=== PATIENT | female | born 1955 | race Caucasian/White ===

== ENCOUNTER → 2018-07-08 | Outpatient (CLI) | payer BC ==
[~2018-07-08] MED LIST: AMOX-355 PO; DESI50TA PO; DOXY50CA2 PO; HYDR1TAB PO; ISOM1CAP11 PO; LANS30CA PO; LISI1TAB PO; LOVA20TA2 PO; OMEG-12 PO; OMEP-10 PO; PRD20T PO
== END ==
LOC: CARD 10:07
PROVIDERS: ATTEND Family Medicine
DX: R00.2 Palpitations (principal); R01.1 Cardiac murmur, unspecified; I07.1 Rheumatic tricuspid insufficiency
CPT/HCPCS: 93306

== ENCOUNTER → 2018-08-08 | Outpatient (CLI) | payer BC ==
[2018-08-09 13:12] VITALS: BP 109/76
--- NOTE | 2018-08-09 13:12 | Cardiology Stress Test Report ---
Stress Test Report Date of Procedure/Referring: Date of Procedure: Aug 08, 2018 PCP Genny Torres DO Admitting Physician Genny Torres DO Indications: chest pressure Baseline Heart Rate: 85 Baseline Blood Pressure: Blood Pressure Systolic: 109 Blood Pressure Diastolic: 76 Baseline EKG: Baseline EKG: sinus rhythm with occasional PVCs Summary/Conclusion: Summary: In summary, the patient started exercising with a baseline heart rate, blood pressure and EKG mentioned above Patient was able to exercise for a total of 4 minutes, 32 seconds on Damián protocol, 6.4 METs Maximum heart rate 149 Maximum blood pressure 171/89 mmhg Stress EKG No EKG changes consistent with ischemia. However, brief episodes of SVT were noted. Recovery EKG Return to baseline Conclusion: 1. average exercise tolerance 2. No stress induced EKG changes consistent with ischemia. 3. Brief episodes of SVT. Nixon CELESTIN MD Aug 09, 2018 13:12
== END ==
LOC: RAD 10:12
PROVIDERS: ATTEND Family Medicine
DX: Z12.31 Encounter for screening mammogram for malignant neoplasm of breast (principal); I47.1 Supraventricular tachycardia
CPT/HCPCS: 77067; 93017

== ENCOUNTER → 2018-08-21 | Outpatient (CLI) | payer BC ==
--- NOTE | 2018-08-21 11:06 | Diagnostic Imaging Report ---
EXAMINATION: Unilateral diagnostic right mammogram with CAD. INDICATION: Annual screening mammogram. COMPARISON: 08/08/2018. FINDINGS: The recent screening mammogram performed on 08/08/2018 noted a small circumscribed density in the retroareolar region of the right breast just lateral to the nipple line. This finding was only seen on the craniocaudad view, however. Compression views of this area in the ML and CC projections as well as a true lateral view were performed. The area in question could not be identified with certainty. It may be related to superimposition of the fibroglandular tissue. Even so, I would recommend that ultrasound be performed for further study. IMPRESSION: Ultrasound would be recommended for further evaluation of the right breast. ACR BI-RADS Category 0: Incomplete. (Needs additional imaging evaluation). Result letter will be mailed to the patient. Note: At least 10% of breast cancer is not imaged by mammography. Dictated by: Dictated on workstation # [id number]
--- NOTE | 2018-08-21 12:06 | Diagnostic Imaging Report ---
EXAMINATION: Ultrasound of the right breast. INDICATION: Abnormal mammogram. FINDINGS: The screening mammogram performed on 08/08/2018 suggested a small benign-appearing nodular density in the lateral retroareolar region of the right breast. That finding could not be identified with certainty on the diagnostic mammogram performed prior to this study. On this exam, however, there is a small well-circumscribed 6 x 4 x 8 mm avascular hypoechoic lesion in the 11 o'clock position 2 cm from the nipple. This may well correspond to the density seen on the screening mammogram. This finding is of uncertain etiology although has a generally benign appearance. Whether this is a small solid lesion or a small complicated cyst is unclear. I would recommend that a short-term (6 month) followup mammogram and ultrasound exam be performed for further study. IMPRESSION: There is a small benign-appearing hypoechoic lesion in the retroareolar region of the right breast. Considerations and recommendations as above. ACR BI-RADS Category 3: Probably benign findings. Result letter will be mailed to the patient. Note: At least 10% of breast cancer is not imaged by mammography. Dictated by: Dictated on workstation # [id number]
== END ==
LOC: RAD 08:57
PROVIDERS: ATTEND Family Medicine
DX: N64.89 Other specified disorders of breast (principal); R92.2 Inconclusive mammogram

== ENCOUNTER → 2019-01-23 | Outpatient (CLI) | payer BC ==
--- NOTE | 2019-01-23 19:30 | Diagnostic Imaging Report ---
INDICATION: Six-month follow-up right breast nodule. Patient also complains of a new palpable lump in the medial aspect of the right breast. Correlation is made with prior mammograms from 08/08/2018 and 07/31/2016. Unilateral right 2-D and 3-D diagnostic mammography was performed. The current study was also evaluated with a Computer Aided Detection (CAD) system. 3-D tomosynthesis was also performed and reviewed. FINDINGS: Scattered fibroglandular densities in the right breast are noted. Previously noted circumscribed nodule in the retroareolar slightly outer right breast appears stable. No new mass is seen. BB marker was placed at the area of palpable abnormality in the medial right breast. No underlying abnormality is detected. There are no suspicious microcalcifications. The right axilla is unremarkable. IMPRESSION: Stable circumscribed retroareolar nodule. Even so, follow-up right breast ultrasound of the nodule is recommended. In addition, sonographic interrogation of the area of palpable abnormality in the medial right breast is recommended and will be performed today. ACR BI-RADS Category 0: Incomplete. (Needs additional imaging evaluation). Result letter will be mailed to the patient. Note: At least 10% of breast cancer is not imaged by mammography. Dictated by: Dictated on workstation # [id number]
--- NOTE | 2019-01-23 19:39 | Diagnostic Imaging Report ---
INDICATION: Six-month followup right breast nodule. In addition, patient complains of a palpable lump in the medial right breast. Study is performed for further evaluation. COMPARISON: Correlation is made with prior right breast ultrasound from 08/21/2018. FINDINGS: Previously noted circumscribed hypoechoic nodule at the 11 o'clock location of the right breast, 2 cm from the nipple appears stable at 6 mm x 3 mm x 8 mm. This has benign features. No internal vascularity is seen. In addition, the area of palpable abnormality at the 3 o'clock location of the right breast, 1 cm from the nipple was evaluated. No sonographic abnormality is seen. No solid or cystic mass is detected. IMPRESSION: 1. Stable circumscribed benign-appearing nodule at the 11 o'clock location of the right breast, 2 cm from the nipple. Additional six-month followup with mammogram and ultrasound is recommended to show continued stability. 2. No sonographic abnormality is identified at the area of new palpable abnormality in the medial right breast. Continued close clinical and self-breast exam is recommended to confirm stability. ACR BI-RADS Category 3: Probably benign findings. Dictated by: Dictated on workstation # [id number]
== END ==
LOC: RAD 09:27
PROVIDERS: ATTEND Family Medicine
DX: N63.11 Unspecified lump in the right breast, upper outer quadrant (principal)

== ENCOUNTER → 2019-02-05 | Outpatient (CLI) | payer BC ==
--- NOTE | 2019-02-05 13:08 | Diagnostic Imaging Report ---
INDICATION: Chronic low back pain. Time of exam 11:15 a.m. FINDINGS: Three views of the lumbar spine were obtained. Curvature and alignment is normal. Vertebral body heights are maintained. No acute compression fracture is seen. There is generalized degenerative disc disease with variable disc space narrowing and marginal spurring. This appears to be greatest at the L1-2, L2-3 and L5-S1 levels. IMPRESSION: Generalized lumbar spondylosis. No acute bony abnormality is detected. Dictated by: Dictated on workstation # [id number]
== END ==
LOC: RAD 10:37
PROVIDERS: ATTEND Family Medicine
DX: M53.3 Sacrococcygeal disorders, not elsewhere classified (principal); M51.36 Other intervertebral disc degeneration, lumbar region; M47.816 Spondylosis without myelopathy or radiculopathy, lumbar region
CPT/HCPCS: 72100

== ENCOUNTER → 2019-06-26 | Outpatient (CLI) | payer BC ==
--- NOTE | 2019-06-26 14:16 | Diagnostic Imaging Report ---
EXAMINATION: Limited right breast ultrasound. INDICATION: Follow-up nodule. FINDINGS: The previous right breast ultrasound exam of 01/23/2019 noted a stable benign-appearing nodule in the 11 o'clock position of the right breast. This finding appeared unchanged when compared to the prior exam of 08/21/2018. On this study that finding is again evident and does not appear to have changed significantly. Most likely, this is a benign process. I would recommend that another six-month follow-up ultrasound exam be obtained for further evaluation. IMPRESSION: The small hypoechoic lesion seen on the previous study appears stable. Most likely, this is a benign process. Recommendations as above. ACR BI-RADS Category 3: Probably benign findings. Dictated by: Dictated on workstation # [id number]
--- NOTE | 2019-06-27 08:30 | Diagnostic Imaging Report ---
Digital mammogram bilateral diagnostic. Indication: Followup exam This study was compared to the prior exams of 01/23/2019, 08/08/2018 and 07/31/2016. At this time there are no current complaints. The previous exam of 08/08/2018 noted a small circumscribed density in the lateral retroareolar region of the right breast. The subsequent diagnostic mammogram and ultrasound exam of 08/21/2018 noted a small 6 x 4 x 8 mm avascular hypoechoic lesion in this area. On this exam that nodular density is still visualized although not as well seen due to the overlying fibroglandular tissue. It does not seem to have changed significantly. Even so, ultrasound is pending for further study. The fibroglandular tissue in both breasts is heterogeneously dense. This does limit the sensitivity of this exam. Overall, there has been no significant change when compared to the prior exam. There is no primary or secondary sign of malignancy noted. Impression: 1. The rounded density in the retroareolar region of the right breast seen previously appears stable. Ultrasound is pending for further evaluation. 2. There is no evidence for malignancy involving either breast otherwise. ACR BI-RADS Category 0: Incomplete. (Needs additional imaging evaluation). Result letter will be mailed to the patient. Note: At least 10% of breast cancer is not imaged by mammography. Dictated by: Dictated on workstation # [id number]
== END ==
LOC: RAD 12:56
PROVIDERS: ATTEND Family Medicine
DX: N63.41 Unspecified lump in right breast, subareolar (principal)
CPT/HCPCS: 77066

== ENCOUNTER → 2019-10-07 | Outpatient (CLI) | payer BC | LOC: CARD 09:17 | PROVIDERS: ATTEND Family Medicine | DX: I49.9 Cardiac arrhythmia, unspecified (principal) | CPT/HCPCS: 93225; 93226 ==

== ENCOUNTER → 2019-12-09 | Outpatient (CLI) | payer MEDICARE, OTHER ==
--- NOTE | 2019-12-09 13:20 | Diagnostic Imaging Report ---
INDICATION: Postmenopausal. COMPARISON: There are no prior studies for comparison. FINDINGS: The bone mineral density of the hips and spine was measured. The T score for the spine is -1.6. The total T score for the right femoral neck is -1.2 and the T score for the right femoral neck is -1.8. The T score for the left femoral neck is -1.5. All these values fall within the range of osteopenia. The total T score for the left hip however is -0.9. This is at the lowest end of normal. AP Spine L1-L4: [BMD (g/cm2): 1.013] [T-Score: -1.6] [Z-Score: -0.8] [BMD Previous: NA] [BMD % Change: NA] LT Hip Neck: [BMD (g/cm2): 0.831] [T-Score: -1.5] [Z-Score: -0.6] LT Hip Total: [BMD (g/cm2):0.889] [T-Score:-0.9] [Z-Score: -0.4] [BMD Previous: NA] [BMD % Change: NA] RT Hip Neck: [BMD (g/cm2):0.789] [T-Score:-1.8] [Z-Score:-0.9] RT Hip Total: [BMD (g/cm2):0.851] [T-score:-1.2] [Z-Score:-0.7] [BMD Previous:NA] [BMD % Change:NA] *Indicates significant change from prior examination based on 95% confidence level. World Health Organization criteria for BMD interpretation classify patients as Normal (T-score at or above -1.0), Osteopenic (T-score between -1.0 and -2.5) or Osteoporotic (T-score at or below -2.5). LIMITATIONS AND MODIFICATION: None. FRACTURE RISK (FRAX SCORE): The ten year probability of (%): Major Osteoporotic Fracture: [14.9] Hip Fracture: [1.9] IMPRESSION: 1. There is osteopenia of the spine and the right hip and both femoral necks. 2. However, the T score for the left hip is at the lowest end of normal. 3. See below National Osteoporosis Foundation guidelines on when to potentially initiate pharmacologic therapy. Based on the National Osteoporosis Foundation Guidelines, pharmacologic treatment should be initiated in any of the following, unless clinical conditions suggest otherwise: * Any patient with prior fragility fracture of the hip or vertebrae. A spine fracture indicates 5X risk for subsequent spine fracture and 2X risk for subsequent hip fracture. * Osteoporosis (T-score <-2.5). * Postmenopausal women and men age 50 and older with low bone mass/osteopenia (T-score between -1.0 and -2.5) by DXA and 10-year major osteoporotic fracture greater than 20% or a 10-year probability of hip fracture greater than 3%. These fracture risks are supplied above in the FRAX score, if applicable. * Clinician judgement and/or patient preferences may indicate treatment for people with 10-year fracture probabilities above or below these levels. Dictated by: Dictated on workstation # [id number]
--- NOTE | 2019-12-09 13:37 | Diagnostic Imaging Report ---
EXAMINATION: Ultrasound right breast limited. INDICATION: Followup nodule. COMPARISON: Right breast ultrasound exam of 06/26/2019. FINDINGS: The small hypoechoic nodule in the 11 o'clock position of the right breast seen previously appears stable and measures 6 x 3 x 8 mm. Most likely, this is a benign process. The patient is scheduled to have her annual screening mammogram of the left breast and diagnostic mammogram of the right breast in January of this year. When she has that study done, I would recommend that this area be reevaluated by ultrasound. IMPRESSION: The hypoechoic lesion in the 11 o'clock position of the right breast seen previously appears stable and is most likely benign. Recommendations as above. ACR BI-RADS Category 3: Probably benign findings. Dictated by: Dictated on workstation # [id number]
== END ==
LOC: RAD 12:15
PROVIDERS: ATTEND Family Medicine
DX: N63.11 Unspecified lump in the right breast, upper outer quadrant (principal); M85.89 Other specified disorders of bone density and structure, multiple sites
CPT/HCPCS: 77080

== ENCOUNTER → 2020-01-05 | Outpatient (CLI) | payer MEDICARE, OTHER ==
--- NOTE | 2020-01-05 11:44 | Diagnostic Imaging Report ---
PROCEDURE: CT urinary tract, rule out kidney stone. TECHNIQUE: Multiple contiguous axial images were obtained through the abdomen and pelvis without the use of intravenous contrast. Auto Exposure Controls were utilized during the CT exam to meet ALARA standards for radiation dose reduction. INDICATION: Right posterior pain, hematuria, chills, fever. CORRELATION STUDY: None. FINDINGS: LOWER THORAX: Lung bases clear of infiltrate. Elevated right diaphragm. Small moderate hiatal hernia. LIVER: 8 mm low-density nodule anterior lateral left lobe liver. 2 smaller lesions medial segment left lobe liver. Smaller 6 mm low-density nodule lateral right lobe of liver. These are incompletely characterized on this examination. GALLBLADDER: Cholecystectomy. No overt bile duct dilatation. SPLEEN: Unremarkable. PANCREAS: Mild fatty atrophic changes. ADRENAL GLANDS: Unremarkable. KIDNEYS: 4 mm rounded low-density foci inferior pole left kidney. No calcification or obstruction. Tiny calcific aeration adjacent to the distal right ureter appears be just adjacent to the ureter as opposed within it. ABDOMINAL AORTA: Unremarkable, nonaneurysmal. A few small scattered aortocaval and mesenteric lymph nodes. Probable 12 mm splenic artery aneurysm. GASTROINTESTINAL TRACT: Stomach relatively collapsed, small amount of retained gastric contents and/or fluid. No small bowel obstruction. Mild severity fecal retention stool in the colon. High density contents within the lumen of the appendix. No inflammation. No abdominal ascites and/or free air. URINARY BLADDER: Decompressed. REPRODUCTIVE: Post hysterectomy. OSSEOUS STRUCTURES: Mild moderately advanced multicompartment level degenerative change about the lumbar spine most severe L5-S1 OTHER: None. IMPRESSION: 1. Negative for acute abnormality of the abdomen or pelvis. 2. Small low-density foci of the liver and left kidney. Vertically characterized favors probable benign process probably small hemangioma and/or cysts. 3. Post cholecystectomy and hysterectomy changes. Dictated by: Dictated on workstation # [id number]
== END ==
LOC: RAD 11:08
PROVIDERS: ATTEND Family Medicine
DX: R10.9 Unspecified abdominal pain (principal)
CPT/HCPCS: 74176

== ENCOUNTER → 2020-01-13 | Outpatient (CLI) | payer MEDICARE, OTHER ==
--- NOTE | 2020-01-13 11:08 | Diagnostic Imaging Report ---
PROCEDURE: US Hepatic (Liver). TECHNIQUE: Multiple real-time grayscale images were obtained over the right upper quadrant in various projections. INDICATION: Follow-up of multiple lesions reported on CT scan of the abdomen of 01/05/2020 without contrast. FINDINGS: Liver measures approximately 15 cm in long axis. There are multiple cysts scattered in the right lobe. Largest measures approximately 10 mm along the superior lateral aspect. Largest cyst in the left lobe measures 1 cm. These all have a simple appearance. No hypervascularity. Gallbladder is absent. Bile ducts are not dilated. Common duct is not visualized due to bowel gas obscuring detail. Pancreas is also obscured as well as the aorta. IVC appears normal as is the portal vein with Doppler sampling. Right kidney measures 9.2 x 4.4 cm. There is no ascites. IMPRESSION: 1. Multiple benign-appearing cysts scattered throughout the right and left lobe of the liver, all measuring approximately 1 cm and smaller. Dictated by: Dictated on workstation # [id number]
--- NOTE | 2020-01-13 11:29 | Diagnostic Imaging Report ---
INDICATION: Kidney lesion. TECHNIQUE: Multiple Real-time grayscale images were obtained over the kidneys in various projections. FINDINGS: The left kidney measures 10.3 x 4.5 x 5.1 cm. There is a 0.9 cm hyperechoic mass inferiorly. There is no hydronephrosis or calculi. The left ureteral jet was not visualized. 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 Dictated by: Dictated on workstation # [id number]
== END ==
LOC: RAD 08:54
PROVIDERS: ATTEND Family Medicine
DX: N28.89 Other specified disorders of kidney and ureter (principal); K76.89 Other specified diseases of liver; Z90.49 Acquired absence of other specified parts of digestive tract
CPT/HCPCS: 76705; 76775

== ENCOUNTER → 2020-07-01 | Outpatient (CLI) | payer MEDICARE, OTHER ==
--- NOTE | 2020-07-01 13:53 | Diagnostic Imaging Report ---
Indication: Six-month follow-up right breast nodule. Correlation is made with prior mammograms dating back to July 2018. 2-D and 3-D bilateral diagnostic mammography was performed with CAD. Both breasts remain heterogeneously dense, limiting sensitivity of mammography. The area of nodularity in retroareolar and slightly outer right breast noted on prior mammograms not well seen on today's study. No new mass is identified. No malignant appearing microcalcifications are seen. There are benign calcifications. Axillae are unremarkable. IMPRESSION: BI-RADS 0 Stable bilateral mammograms with no mammographic features suspicious for malignancy. Even so, sonographic interrogation of the previously noted hypoechoic nodule 11:00 location right breast is recommended and will be performed today. ACR BI-RADS Category 0: Incomplete. (Needs additional imaging evaluation). Result letter will be mailed to the patient. Note: At least 10% of breast cancer is not imaged by mammography. Dictated by: Dictated on workstation # [id number]
--- NOTE | 2020-07-01 16:56 | Diagnostic Imaging Report ---
INDICATION: Follow-up right breast nodule. COMPARISON: Correlation is made with diagnostic mammogram from earlier the same day as well as prior right breast ultrasound from 12/09/2019. FINDINGS: Sonographic interrogation of the 11:00 location in the right breast, 2 cm from the nipple, again demonstrates a circumscribed hypoechoic nodule measuring 7 mm x 3 mm x 6 mm compared with 8 mm x 3 mm x 6 mm on prior. No new mass is detected. IMPRESSION: Stable benign nodule of the 11:00 location in the right breast, 2 cm from the nipple. This demonstrates nearly 2 years of stability. Patient may return to routine annual screening mammography. ACR BI-RADS Category 2: Benign findings. Result letter will be mailed to the patient. Note: At least 10% of breast cancer is not imaged by mammography. Dictated by: Dictated on workstation # [id number]
== END ==
LOC: RAD 12:52
PROVIDERS: ATTEND Family Medicine
DX: N63.11 Unspecified lump in the right breast, upper outer quadrant (principal)
CPT/HCPCS: 76642; 77066; G0279; 77062

== ENCOUNTER → 2021-01-24 | Outpatient (CLI) | payer MEDICARE, OTHER ==
[~2021-01-24] MED LIST changes: +CATHETER FLUSH 10 ML SYR IV PRN
[2021-01-24 13:32] LABS: INR 2.1 (0.8-1.4); PROTHROMBIN TIME PATIENT 23.6 SEC (12.2-14.7)
--- NOTE | 2021-01-24 13:32 | Diagnostic Imaging Report ---
INDICATION: Shortness of breath and tachycardia. Patient was administered 5.5 mCi technetium 99m MAA intravenously and imaging over the chest was performed in multiple obliquities. No prior chest radiograph is available for comparison. There is fairly homogeneous uptake of activity throughout both lungs. No pleural-based perfusion defect is identified. IMPRESSION: Normal perfusion lung scan. Dictated by: Dictated on workstation # [id number]
== END ==
LOC: CARD 13:00
PROVIDERS: ATTEND Family Medicine
DX: D68.8 Other specified coagulation defects (principal); R00.0 Tachycardia, unspecified; R06.02 Shortness of breath; Z86.711 Personal history of pulmonary embolism; Z79.01 Long term (current) use of anticoagulants
CPT/HCPCS: 78580; 85610; A9540; 36415

== ENCOUNTER → 2021-07-13 | Outpatient (CLI) | payer MEDICARE, OTHER ==
[~2021-07-13] MED LIST changes: -CATHETER FLUSH 10 ML SYR IV PRN
--- NOTE | 2021-07-13 10:48 | Diagnostic Imaging Report ---
INDICATION: Routine screening. COMPARISON: 07/01/2020 and 06/26/2019. TECHNIQUE: 2D and 3D bilateral screening mammography was performed with CAD. FINDINGS: Both breasts are heterogeneously dense, limiting the sensitivity of mammography. The parenchymal pattern is stable. No mass or malignant-appearing microcalcifications are seen. There are benign calcifications present. The axillae are unremarkable. IMPRESSION: No mammographic features suspicious for malignancy are identified. ACR BI-RADS Category 2: Benign findings. Result letter will be mailed to the patient. Note: At least 10% of breast cancer is not imaged by mammography. Dictated by: Dictated on workstation # [id number]
== END ==
LOC: RAD 09:45
PROVIDERS: ATTEND Family Medicine
DX: Z12.31 Encounter for screening mammogram for malignant neoplasm of breast (principal)
CPT/HCPCS: 77063; 77067

== ENCOUNTER → 2021-09-12 | Outpatient (CLI) | payer MEDICARE, OTHER ==
[2021-09-12 11:05] LABS: CREATINE KINASE 66 U/L (29-168)
[2021-09-12 11:12] LABS: CREATINE KINASE MB 1.1 NG/ML (<6.6)
== END ==
LOC: CARD 10:30
PROVIDERS: ATTEND Family Medicine
DX: R07.9 Chest pain, unspecified (principal); R06.02 Shortness of breath
CPT/HCPCS: 36415; 82550; 82553; 84484; 85379; 86141; 93005

== ENCOUNTER → 2021-09-16 | Outpatient (CLI) | payer MEDICARE, OTHER | LOC: CARD 12:30 | PROVIDERS: ATTEND Family Medicine | DX: I49.9 Cardiac arrhythmia, unspecified (principal) ==

== ENCOUNTER → 2021-09-29 | Outpatient (CLI) | payer MEDICARE, OTHER | LOC: CARD 09:22 | PROVIDERS: ATTEND Family Medicine | DX: I48.91 Unspecified atrial fibrillation (principal) | CPT/HCPCS: 93306 ==

== ENCOUNTER 2021-10-07 09:00 | Outpatient (CLI) | payer MEDICARE, OTHER | END 2021-10-07 09:20 | LOC: SLEEP 09:00 | PROVIDERS: ATTEND Internal Medicine Cardiovascular Disease | DX: G47.33 Obstructive sleep apnea (adult) (pediatric) (principal); I49.9 Cardiac arrhythmia, unspecified; I10 Essential (primary) hypertension; G47.00 Insomnia, unspecified; G47.10 Hypersomnia, unspecified | CPT/HCPCS: G0399 ==

== ENCOUNTER → 2021-10-26 | Outpatient (CLI) | payer MEDICARE, OTHER ==
[~2021-10-26] VITALS: Ht 157 cm; Wt 90.0 kg
[~2021-10-26] MED LIST changes: +CATHETER FLUSH 10 ML SYR IVP PRN
[2021-10-26 12:56] VITALS: BP 120/84
== END ==
LOC: CARD 11:09
PROVIDERS: ATTEND Internal Medicine Cardiovascular Disease
DX: I10 Essential (primary) hypertension (principal); I25.10 Atherosclerotic heart disease of native coronary artery without angina pectoris
CPT/HCPCS: 78452; 93017; A9502

== ENCOUNTER → 2022-09-11 | Outpatient (CLI) | payer MEDICARE, OTHER ==
[~2022-09-11] MED LIST changes: -CATHETER FLUSH 10 ML SYR IVP PRN
--- NOTE | 2022-09-11 12:26 | Diagnostic Imaging Report ---
INDICATION: Routine screening. COMPARISON: 07/13/2021 and 07/01/2020. TECHNIQUE: 2D and 3D bilateral screening mammography was performed with CAD. FINDINGS: Both breasts are heterogeneously dense, limiting the sensitivity of mammography. The overall parenchymal pattern appears stable. No mass is identified. No malignant-appearing microcalcifications are seen. The axillae are unremarkable. IMPRESSION: No mammographic features suspicious for malignancy are identified. ACR BI-RADS Category 1: Negative. Result letter will be mailed to the patient. Note: At least 10% of breast cancer is not imaged by mammography. Dictated by: Dictated on workstation # [id number]
== END ==
LOC: RAD 08:30
PROVIDERS: ATTEND Family Medicine
DX: Z12.31 Encounter for screening mammogram for malignant neoplasm of breast (principal)
CPT/HCPCS: 77063; 77067

== ENCOUNTER → 2022-09-25 | Outpatient (CLI) | payer MEDICARE, OTHER ==
--- NOTE | 2022-09-25 20:06 | Diagnostic Imaging Report ---
INDICATION: Left-sided pain FINDINGS: 3 view left ribs performed. No fracture, dislocation or bony destructive process. There is a retrocardiac air-fluid level presumed hiatal hernia. This is stable from priors. IMPRESSION: Unremarkable left rib series Dictated by: Dictated on workstation # [id number]
--- NOTE | 2022-09-25 20:07 | Diagnostic Imaging Report ---
INDICATION: Chest pain FINDINGS: The lungs are clear. There is a retrocardiac hiatal hernia. No acute chest wall pathology. No effusion, pneumothorax or failure pattern. IMPRESSION: Retrocardiac hiatal hernia. No acute appearing abnormality. Dictated by: Dictated on workstation # [id number]
== END ==
LOC: RAD 16:22
PROVIDERS: ATTEND Family Medicine
DX: K44.9 Diaphragmatic hernia without obstruction or gangrene (principal)
CPT/HCPCS: 71046; 71100